=== PATIENT | female | born 1970 | race Two or more races ===

== ENCOUNTER → 2017-09-30 | Outpatient (REF) ==
[~2017-09-30] MED LIST: ASPI-1471 PO; ASPI-715 PO; CEF300 PO; CHOL10005 PO; DOXY-179 PO; FERR240T15 PO; GUAI-242 PO; IBU800 PO; NO MEDS; PER PO; PRED-1 PO; PROG200C PO; SIM10 PO; VALA100059 PO; [UNRECOGNIZED DRUG - CODE] PO
[2017-09-30 11:06] LABS: LDL CHOLESTEROL 75 mg/dl
== END ==
DX: Z02.9 Encounter for administrative examinations, unspecified (principal)

== ENCOUNTER → 2017-11-04 | Outpatient (REF) | payer OTHER | LOC: ZZSENDIN 12:00 | PROVIDERS: ATTEND Surgery | DX: L98.9 Disorder of the skin and subcutaneous tissue, unspecified (principal) | CPT/HCPCS: 88305 ==

== ENCOUNTER → 2017-12-25 | Outpatient (CLI) | payer OTHER ==
--- NOTE | 2017-12-28 18:01 | RADIOLOGY IMAGING REPORT ---
FACILITY: [facility] PATIENT NAME: TISHA BORGES : [id number] MR: [id number] V: [id number] EXAM DATE: [id number] ORDERING PHYSICIAN: SHAYLA GLORIA TECHNOLOGIST: Ivana Corral PROCEDURE:BILATERAL DIGITAL SCREENING MAMMOGRAM WITH CAD ASSISTED INTERPRETATION & 3D TOMOSYNTHESIS COMPARISON:Prior mammograms 12/24/16, 12/24/15, 12/20/14, 12/12/13, 12/10/12, 12/09/11. INDICATIONS:screening FINDINGS: A small amount of fibroglandular tissue is seen throughout the breasts. The parenchymal pattern has remained stable allowing for difference in mammographic technique & patient positioning. There is no evidence of malignant appearing mass, malignant appearing calcifications or other secondary sign of malignancy in either breast. DIAGNOSTIC CATEGORY 1--NEGATIVE. RECOMMENDATIONS: ROUTINE MAMMOGRAM AND CLINICAL EVALUATION. IMPRESSION: BIRADS 1: Negative. No significant abnormality is seen. Dictated by: Nakia Hernandez M.D. on 12/28/2017 at 11:00 Transcribed by: KAYLA on 12/28/2017 at 13:14 Approved by: Nakia Hernandez M.D. on 12/28/2017 at 18:00 [facility]
== END ==
LOC: MAMO 01:31
PROVIDERS: ATTEND Nurse Practitioner Family
DX: Z12.31 Encounter for screening mammogram for malignant neoplasm of breast (principal)
CPT/HCPCS: 77063; 77067

== ENCOUNTER → 2018-10-05 | Outpatient (REF) ==
[2018-10-05 07:57] LABS: LDL CHOLESTEROL 50 mg/dl
== END ==
LOC: MERGE 07:08
DX: Z02.9 Encounter for administrative examinations, unspecified (principal)

== ENCOUNTER → 2018-11-08 | Outpatient (CLI) | payer OTHER ==
--- NOTE | 2018-11-08 14:02 | RADIOLOGY IMAGING REPORT ---
FACILITY: [facility] [place] PATIENT NAME: Agnélica Thomas : 1970 MR: [id number] V: [id number] EXAM DATE: ORDERING PHYSICIAN: SHAYLA GLORIA TECHNOLOGIST: Location: [facility] Patient: Angélica Thomas : 1970 Visit/Account:[id number] Date of Sevice: 11/08/2018 DEXA Scan Clinical history: Osteopenia. Comparison: None available. LUMBAR SPINE: The bone mineral density (BMD) measured from L1-L3 correlates with a Z-score 0.7 and a T-score of 1.5 which is Normal as defined by the World Health Organization. The corresponding risk of fracture in the lumbar spine is Not increased compared with a young adult reference population. HIP: Bone mineral density (BMD) measured in the Left total hip region correlates with a Z-score 0.3 and a T-score of 0.6 which is Normal as defined by the World Health Organization. The corresponding risk o f fracture in the hip is Not increased compared with a young adult reference population. . Bone mineral density (BMD) measured in the Femoral Neck region measures 1.037 g/cm2. T score of 0.0. Normal Impression: 1. Lumbar spine: Normal. 2. Left Total Hip: Normal. 3. Femoral Neck: Bone Mineral Density is 1.037 g/cm2. Normal The next DEXA scan of this patient should include the following sites: L1-L3 and the left hip. FRAX? WHO Fracture Risk Assessment Tool link: <http://www.shef.ac.uk/FRAX/tool.jsp?locationValue=9> PLEASE NOTE: 1) The World Health Organization defines low BMD as follows: T-score Normal > -1 Osteopenia < -1 and > -2.5 Osteoporosis < -2.5 without fractures Established osteoporosis < -2.5 with fractures 2) In general, you may wish to consider: Diagnosis Treatment Follow-up DEXA Normal BMD Prevention 2-3 years Osteopenia Prevention/therapy 1-2 years Osteoporosis Therapy Yearly 3) Fracture risk estimated from the T-score is more accurate for vertebral fractures (often spontane ous) than for hip fractures. Report Dictated By: Abdifatah Moya MD at 11/08/2018 1:55 PM Report E-Signed By: Abdifaath Moya MD at 11/08/2018 1:58 PM WSN:NANDO
== END ==
LOC: RAD 02:16
PROVIDERS: ATTEND Nurse Practitioner Family
DX: Z78.0 Asymptomatic menopausal state (principal)
CPT/HCPCS: 77080

== ENCOUNTER → 2019-01-26 | Outpatient (CLI) | payer OTHER ==
--- NOTE | 2019-02-01 10:04 | RADIOLOGY IMAGING REPORT ---
FACILITY: [facility] [place] PATIENT NAME: TISHA BORGES : [id number] MR: [id number] V: [id number] EXAM DATE: [id number] ORDERING PHYSICIAN: SHAYLA GLORIA TECHNOLOGIST: Jessica Mclean PROCEDURE: BILATERAL DIGITAL SCREENING MAMMOGRAM WITH CAD ASSISTED INTERPRETATION & 3D TOMOSYNTHESIS. REASON FOR STUDY: Screening. COMPARISON: [facility]. VIEWS OBTAINED: 2D & 3D full field CC & MLO projections. BREAST DENSITY: Scattered fibroglandular densities are present in both breasts. MAMMOGRAM FINDINGS: Several small benign appearing masses are scattered in both breasts, essentially unchanged. IMPRESSION: BIRADS 2: Benign finding. DIAGNOSTIC CATEGORY 2--BENIGN FINDING. RECOMMENDATIONS: ROUTINE MAMMOGRAM AND CLINICAL EVALUATION IN 1YR. Dictated by: Seth Peralta M.D. on 01/26/2019 at 9:03 Transcribed by: KAYLA on 01/26/2019 at 10:05 Approved by: Lily Crocker M.D. on 02/01/2019 at 10:00 [facility]
== END ==
LOC: MAMO 12-29 00:54
PROVIDERS: ATTEND Nurse Practitioner Family
DX: Z12.31 Encounter for screening mammogram for malignant neoplasm of breast (principal); Z80.3 Family history of malignant neoplasm of breast
CPT/HCPCS: 77063; 77067